=== PATIENT | male | born 1950 | race Caucasian/White ===

== ENCOUNTER → 2017-12-27 08:59 | Outpatient (CLI) | payer MEDICARE, OTHER, SELFPAY ==
--- NOTE | 2017-12-27 10:58 | P.PCN_ITS ---
Cardiac Stress Test Report Referral & Results Date Patient Seen: 12/27/17 Time Patient Seen: 10:57 Requesting provider: Jeff Fernandes Indication: Chest pain Rest ECG: Unremarkable Procedure Note: Today following both written and verbal informed consent the patient was exercised according to a standard Damaso protocol patient went for a total of 5 min 4 sec achieving a maximum heart rate of 166 maximum systolic blood pressure of 180. This is approximately 7.0 METS. Exercise was terminated at this point because of targets having been met and 3+ dyspnea with wheezing. Patient was also given Cardiolite through a previously started Hep-Lock IV by the nuclear weapons mechanical specialist approximately 1 minute prior to the cessation of exercise. There are no ST segment changes noted Normal heart rate and blood pressure response to exercise Functional aerobic impairment rated about 25% on the sedentary scale Frequent PACs including supraventricular bigeminy and supraventricular couplets. Patient's oxygen saturation remained normal throughout despite his wheezing and dyspnea at 94+ percent Impression: No ischemic changes Dysrhythmia as above Perfusion imaging to be reported separately Please note: Actual ECG tracings can be found in the PACS system.
--- NOTE | 2017-12-28 16:33 | DI.NM.S_ITS ---
DATE OF SERVICE: 12/27/2017 PROCEDURE PERFORMED: Exercise treadmill stress and rest myocardial perfusion imaging study with gating to assess ejection fraction and regional wall motion. ORDERING PROVIDER: Jeff Fernandes MD INDICATIONS: The patient is a 67-year-old male with recent pneumonia and chest discomfort. EXERCISE TREADMILL TESTING: The patient was able to exercise for 5 minutes 4 seconds on a standard Damaso protocol suggesting moderately reduced exercise capacity with an CECI of +30% on the active scale. He had significant dyspnea but no chest discomfort. His resting ECG is normal and there are no ischemic changes to suggest ischemia. He had fairly frequent PACs with exercise and in early recovery but no other complex ectopy. At 4 minutes 0 seconds of exercise, at a heart rate of 135 bpm, 25.8 mCi of Tc99m Myoview was injected and the patient was imaged 60 minutes later using a gated SPECT acquisition protocol. He returned one day later and was reinjected with 26.9 mCi of Tc99 Myoview and was imaged 25 minutes later, again using a gated SPECT acquisition protocol. FINDINGS: 1. Raw Data: There is fair myocardial tracer uptake, although considerable motion is noted on the post stress images which can introduce artifact. The lung/heart ratio is normal at 0.31 with a normal TID ratio of 1.05. 2. Quantitative Gated SPECT: Post stress ejection fraction is estimated at 67% without any focal wall motion abnormality and specifically, the interior wall and anterior septum both appear to have normal contractility. Resting ejection fraction is 75% with an end-diastolic volume of 104 mL. 3. Myocardial Perfusion Imaging: Post stress supine images show a mild perfusion defect in the proximal and mid inferior and inferolateral segment in a pattern consistent with diaphragmatic attenuation artifact, supported by its near-complete resolution on the prone images. In addition, there is a very small, subtle, distal anteroseptal defect that also improves, although does not completely resolve on the prone images. The resting images show an identical perfusion pattern without any significant improvement in both the inferior defect and the anteroseptal defect. CONCLUSION: 1. Probable normal myocardial perfusion study. 2. Mild fixed proximal and mid inferior defect that essentially resolves on prone imaging, most consistent with diaphragmatic attenuation artifact. There is also a very small, subtle, fixed anteroseptal defect that improves but does not completely resolve on prone images that likely reflects chest wall attenuation. There is no evidence for any myocardial ischemia. While previous nontransmural infarction cannot be entirely excluded, this is unlikely given the location and the absence of any regional wall motion abnormality. 3. Normal left ventricular systolic function without any focal wall motion abnormality. 4. Moderately reduced exercise capacity without angina or ECG evidence of ischemia, although with limiting dyspnea. He had frequent premature atrial contractions (PACs) during exercise and early recovery but no complex arrhythmias. JEFF FAM - MITRA/bimal/ doc#: [id number]/job#: [id number] dd: 12/28/2017 11:43:00 dt: 12/28/2017 16:16:00 DICTATING MD/COPIES TO: Flo Robles MD; Jeff Fernandes MD COPIES MNE: [facility]
== END ==
PROVIDERS: Visit Provider Student in an Organized Health Care Education/Training Program
DX: R07.9 Chest pain, unspecified (principal); R06.00 Dyspnea, unspecified; I49.1 Atrial premature depolarization
CPT/HCPCS: 78452; 93016; 93017; 93018; A9502

== ENCOUNTER → 2023-05-11 10:13 | Outpatient (CLI) | payer MEDICARE, OTHER, SELFPAY ==
--- NOTE | 2023-05-11 | DI.NM.S_ITS ---
PROCEDURE: NM MAGDA PERF SPECT R&S PHARM Rest and pharmacological stress myocardial perfusion SPECT with gated imaging and ejection fraction RADIOPHARMACEUTICAL: 24.8 mCi Tc-99m tetrafosmin IV at rest and 25.0 mCi Tc-99m tetrafosmin IV at peak effect of pharmacological stress. [id number] was performed. INDICATIONS: Other forms of dyspnea TECHNIQUE: Radiopharmaceutical was injected at peak stress test, and also at rest. SPECT images were obtained. SPECT myocardial perfusion images were displayed in short axis, horizontal long axis, and vertical long axis views. Gated images were reviewed using [employer] software. COMPARISON: None. CARDIAC STRESS: A pharmacologic stress test was performed under the supervision of an attending staff, using an infusion of lexiscan 0.4mg IV X1. Hemodynamic data: There is normal blood pressure and heart rate response to pharmacologic stress. Symptoms: The patient denied anginal chest pain. Aminophylline: none EKG: No diagnostic changes of ischemia; occasional PVCs. FINDINGS: Raw data: There is good myocardial uptake of radiotracer. No significant motion artifacts. Left ventricle function: Gated images demonstrate normal left ventricular wall thickening. No segmental wall motion abnormalities. No transient ischemic dilation; TID is 1.04 (normal less than 1.3). Left ventricle resting end diastolic volume is 93 mL. Left ventricle stress ejection fraction is 71%; normal range is above 45%. Myocardial perfusion: There is normal distribution of activity in the right and left ventricular myocardium. No fixed or reversible perfusion defects. IMPRESSION: Low risk, normal pharmaceutical nuclear stress test with normal LV wall motion and normal function (EF post stress 71%). Dictated by: Dalton Person MD on 05/14/2023 at 16:09 Approved by: Dalton Person MD on 05/14/2023 at 16:10
== END ==
PROVIDERS: PCP Student in an Organized Health Care Education/Training Program; Referring Provider Student in an Organized Health Care Education/Training Program; Visit Provider Student in an Organized Health Care Education/Training Program
DX: R06.09 Other forms of dyspnea (principal); I10 Essential (primary) hypertension; R60.0 Localized edema; E66.9 Obesity, unspecified; Z68.36 Body mass index [BMI] 36.0-36.9, adult
CPT/HCPCS: 78452; 93017; A9502; J2785